=== PATIENT | female | born 1980 | race Caucasian/White ===

== ENCOUNTER 2022-08-11 04:38 | Emergency (ER) | payer MEDICAID, OTHER ==
[2022-08-11] MEDS ORDERED: Amoxicillin 500 MG Cap PO ONE (05:21)
== END 2022-08-11 05:50 | disposition home or self-care (01) ==
LOC: JD.ED 04:38
DX: J02.0 Streptococcal pharyngitis (principal); B95.0 Streptococcus, group A, as the cause of diseases classified elsewhere
CPT/HCPCS: 87651; 99283; A9270